=== PATIENT | female | born 1955 | race Two or more races ===

== ENCOUNTER 2021-03-19 14:37 | Emergency (ER) | payer MEDICAID ==
[~2021-03-19] VITALS: Ht 172.7 cm; Wt 62.1 kg
[2021-03-19 16:20] VITALS: BP 152/81
--- NOTE | 2021-03-19 16:20 | NUR ---
PT FROM HOME REQUESTING MEDICATION FOR COVID. TESTED POSITIVE TODAY. 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 PT A/OX4. TOLERATING R/A WELL WITH NO SOB. CONNECTED PT TO POX AND MONITOR
[2021-03-19] MEDS ORDERED: DEXA4TAB PO (16:33)
== END 2021-03-19 17:02 | disposition home or self-care (01) ==
LOC: ER 14:42
DX: U07.1 COVID-19 (principal); I10 Essential (primary) hypertension